=== PATIENT | female | born 1980 | race Caucasian/White ===

== ENCOUNTER 2017-04-18 23:11 | Emergency (ER) | payer MEDICAID ==
[2017-04-18] MEDS ORDERED: Ondansetron 4 MG/2 ML SDV IVPUSH ONE (23:56)
[2017-04-19] MEDS ORDERED: Sodium Chloride 0.9% 1,000 ML IV SCH (00:15)
[2017-04-19 01:29] LABS: ACETAMINOPHEN 4 ug/mL (10-30)
[2017-04-19] MEDS ORDERED: Metoclopramide 10 MG/2 ML SDV IV ONE (01:58)
[2017-04-19] MEDS ORDERED: Metoclopramide 10 MG/2 ML SDV ONE (02:01)
[2017-04-19] MEDS ORDERED: Acetaminophen 1,000 MG in Premix Bag 1 BAG IV ONE (02:04)
[2017-04-19] MEDS ORDERED: diphenhydrAMINE 50 MG/ML SDV IVPUSH ONE (02:14)
[2017-04-19] MEDS ORDERED: Ketorolac 30 MG/ML SDV IVPUSH ONE (02:14)
[2017-04-19 02:39] VITALS: BP 119/69
[2017-04-19] MEDS ORDERED: Ondansetron 4 MG Tab.DIS PO ONE (02:42)
--- NOTE | 2017-04-20 04:35 | ER ---
DATE SEEN: 04/18/2017 ADDENDUM: Benadryl 50 mg, Ofirmev 1000 mg given IV in addition to 10 mg Toradol and 10 mg Reglan IV plus Zofran 4 mg IV. /[id number] MOISES/MELINDAL
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
== END 2017-04-19 03:10 ==
LOC: FB.ED 23:11
DX: S06.0X9A Concussion with loss of consciousness of unspecified duration, initial encounter (principal); S16.1XXA Strain of muscle, fascia and tendon at neck level, initial encounter; M54.5 Low back pain; G89.29 Other chronic pain; Z98.890 Other specified postprocedural states; Y04.0XXA Assault by unarmed brawl or fight, initial encounter
CPT/HCPCS: 36415; 70450; 72125; 72131; 80053; 80305; 81001; 85025; 96361; 96374; 96375; 99285; A9270; G0480; J0131; J1200; J1885; J2405; J2765; J7040

== ENCOUNTER 2017-09-19 18:43 | Emergency (ER) | payer MEDICAID ==
[2017-09-19] MEDS ORDERED: Lidocaine 1% with EPINEPHrine 1:100,000 10 ML MDV INFILT ONE (18:44)
[2017-09-19 20:13] VITALS: BP 146/97
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
--- NOTE | 2017-09-22 14:59 | CR ---
INDICATION: Decreased movement, pain. LEFT SHOULDER: Four views of the left shoulder were compared with left shoulder visualized on left ribs of 11/29/2013, and revealed no definite interval change or significant bone or joint abnormality. IMPRESSION: Normal left shoulder. If an occult bony abnormality is suspected clinically, nuclear bone imaging is recommended for further evaluation. If soft tissue injury is suspected clinically, MRI is recommended for further evaluation. MTDD
== END 2017-09-19 20:18 | disposition home or self-care (01) ==
LOC: FB.ED 18:43
DX: S61.411A Laceration without foreign body of right hand, initial encounter (principal); S46.911A Strain of unspecified muscle, fascia and tendon at shoulder and upper arm level, right arm, initial encounter; Z88.5 Allergy status to narcotic agent; Z91.048 Other nonmedicinal substance allergy status; Z91.018 Allergy to other foods; Y04.0XXA Assault by unarmed brawl or fight, initial encounter
CPT/HCPCS: 12001; 73030-LT; 99283